=== PATIENT | female | born 2000 | race Native Hawaiian/Other Pacific Islander ===

== ENCOUNTER 2022-06-26 02:14 | Outpatient (CLI) | payer MEDICAID, SELFPAY ==
[2022-06-26 02:43] VITALS: BP 125/77; PULSE 75; RESP 16; TEMP 37.3
[2022-06-26] MEDS: hydrOXYzine pamoate 25 MG CAPSULE 100 MG PO (04:25)
== END 2022-06-26 04:30 | disposition home or self-care (01) ==
LOC: OB OUT 02:15 → OB 02:16
PROVIDERS: PCP Family Medicine; Visit Provider Family Medicine
DX: O47.1 False labor at or after 37 completed weeks of gestation (principal); Z3A.40 40 weeks gestation of pregnancy
CPT/HCPCS: 99213; A9270

== ENCOUNTER 2022-06-26 08:17 | Inpatient (IN) | payer MEDICAID, SELFPAY ==
[2022-06-26] VITALS (41 sets, daily range): BP systolic 118–176; BP diastolic 58–92; PULSE 65–108; RESP 16–20; TEMP 36.8–38.5; O2SAT 97–100; BMI 33.8
[2022-06-26] MEDS: fentaNYL 100 MCG/2 ML inj IVP ×4 (08:51→22:20)
--- NOTE | 2022-06-26 09:05 | PM.OBHPLI ---
OB - H&P: HPI Labor/Induction History of Present Illness Time Seen by Provider: 09:05 Date Seen: 06/26/22 Chief Complaint: The patient is a 22 year old 1 para 0 at 40+1 weeks gestation by early US, who presents with contractions. Chief complaint: Maternity Narrative: Char Mercer is a 22 year old female at 40+ 1 weeks by early ultrasound presents with contractions starting around 11:30 p.m. yesterday. has been uncomplicated. Contractions became more intense and frequent. She presented to triage overnight and was found to be 3/80%/ -1. 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 She then returned several hours later with more intense contractions. That she felt some trickling fluid, but this was determined to be vaginal gel. No gross ruptured. She made change to 4/80/-1 during a period of observation and will be admitted for labor. Labs Blood type: A (+) positive Rubella: immune RPR/VDLR: nonreactive GBS status: negative HBsAG: negative Review of Systems Status of ROS: Reports: 10 or more systems reviewed and unremarkable except as noted in History and below Meds Home Medications and Allergies Home Medications Medication Instructions Recorded Confirmed Type vitamin with calcium tab 06/26/22 History no.72-iron 27 mg-folic acid 1 mg tablet ( Vitamins Plus Low Iron) Allergies Allergy/AdvReac Type Severity Reaction Status Date / Time No Known Drug Allergies Allergy Verified 06/26/22 06:36 OB - H&P: Exam Physical Exam: Vital signs: Pulse BP Pulse Ox 75 127/78 97 06/26/22 07:57 06/26/22 07:57 06/26/22 07:56 Narrative: General appearance: Alert, oriented and appropriate. No acute distress. Lying in hospital bed. HEENT: EOMI, no conjunctival injection or discharge. Mucous membranes moist. Neck: Supple. Cardiovascular: Regular rate and rhythm, no rubs, murmurs or extra heart sounds. Pulmonary: Clear to auscultation bilaterally. No wheezes, rales or rhonchi. Abdomen: Gravid. Soft, nontender. MSK: Moves all extremities. Extremities: Were well-perfused, no lower extremity edema. Skin: No rashes appreciated over exposed skin. Neuro: Cranial nerves grossly intact. No observable deficits. Detailed Labor and Delivery Exam: Dilation (cm): 4 Effacement (%): 80 Cervix position: mid Consistency: soft Fetus (Single): Station: -1 Amniotic Membrane Status: intact Heart Rate Baseline: 130 Monitor Accelerations: Present Monitor Decelerations: None Care Home Variability: Moderate (6-25) OB - Problem Based A/P Additional Plan (1) Term : Status: Acute Plan - Latent labor, making cervical change - Received fentanyl for pain management with good effect. Nitrous or epidural upon request - GBS negative - status reassuring - Expectant management. Anticipate vaginal delivery.
[2022-06-26 10:23] LABS: SARS PCR* Negative SARS-CoV-2 (Negative)
[2022-06-26 10:55] LABS: Total Protein Urine 20 mg/dL
[2022-06-26 10:56] LABS: Creatinine Urine 28.2 mg/dL
[2022-06-26 11:24] LABS: Hematocrit 34.7 % (33.0-51.0); Mean Corpuscular HGB Conc 35 gm/dL (32-36); Mean Corpuscular Hemoglobin 29 pg (26-34); Mean Corpuscular Volume 84 fL (80-100); Platelet Count* 215 K/uL (140-440); Red Blood Count 4.12 m/uL (4.00-5.20); White Blood Count* 15.19 K/uL (4.50-11.00)
[2022-06-26 11:37] LABS: Slide Review Reflex No
[2022-06-26 14:10] LABS: Creatinine* 0.4 mg/dL (0.5-1.5); Est. Creatinine Clearance* 262.54; Estimated Glomerular Filt Rate 144 ml/min
[2022-06-26 14:11] LABS: Alanine Aminotransferase* 16 U/L (4-35); Aspartate Amino Transferase* 26 U/L (12-35); Blood Urea Nitrogen* 7 mg/dL (5-24)
[2022-06-26] MEDS: LACTATED RINGERS 1000 ML 1,000 ML 125 ML IV ×2 (15:00→19:35)
[2022-06-26] MEDS: OXYTOCIN 30 unit/500 ML in NS 30 UNIT/500 ML BAG IVPB (16:09)
--- NOTE | 2022-06-26 21:19 | PM.OBPNL ---
Subjective Time Seen by Provider: 21:19 Date Seen: 06/26/22 Narrative: Patient uncomfortable and breathing, rocking through contractions. Elevated temp to 101.3 at 1842. States not feeling unwell, warm or achey. Feeling tired, little to no rest last night or today. No leaking fluid. Limited cervical electronic data interchange specialist the course of the day. 4/80/+1 > 5/90/+1. Objective Vital Signs: Last Vital Signs Temp 100.0 F H 06/26/22 19:41 Pulse 92 06/26/22 19:41 Resp 20 06/26/22 17:05 BP 146/86 H 06/26/22 19:41 Pulse Ox 99 06/26/22 10:10 Pelvic Exam Dilation (cm): 5 Effacement (%): 90 Station: +1 Contractions Monitor mode: Internal Contraction Frequency: Q 4-5 Contraction pattern: Regular Assessment Station: +1 Amniotic Membrane Status: SROM Heart Rate Baseline: 140 Monitor Accelerations: Present Monitor Decelerations: None Plan Plan: #Active labor - OP on SVE. Position changes per nursing to promote turning - SROM, unknown time. Prolonged ROM. Membranes are ruptured on exam, though patient has not been leaking fluid - IUPC placed. Pitocin has been started and stopped on several occasions due to tachysystole - Long discussion regarding epidural. Patient would like to hold off, but encouraged this after 1-2 hours hours of positional changes to promote rest #Suspected III - Single temp elevated to 101.3. No tachycardia. WBC 15.9 at 1100. - Initiate abx given fever + prolonged ROM #Pre-eclampsia - Diagnosed upon admission. BPs 140s/80s and Pr/Cr ratio 0.7. Asymptomatic. - Continue to monitor BP closely - Initiate BP tx and mag for severe range pressures If no significant progress despite the above interventions, consider section
[2022-06-26] MEDS: AMPICILLIN 2 GM in 0.9 % SODIUM CHLORIDE Mini-bag 100 ML IVPB (21:58)
[2022-06-26 22:10] LABS: Appearance Urine Clear (Clear); Bilirubin Urine Negative (Negative); Blood Urine 2+ (Negative); Color Urine Yellow (Yellow); Glucose Urine Negative (Negative); Ketones Urine Negative (Negative); Leukocyte Esterase Urine 1+ (Negative); Nitrite Urine Negative (Negative); Protein Urine 2+ (Negative); Specific Gravity Urine 1.015 (1.000-1.030); Urobilinogen Urine 0.2 (0.2-1.0)
[2022-06-26 22:23] LABS: Squamous Epithelial Cell Urine Moderate (None-Few); WBC Urine 0-2 (0-5)
[2022-06-26 22:24] LABS: Mucus Urine Few
[2022-06-27] VITALS (38 sets, daily range): BP systolic 99–139; BP diastolic 64–89; PULSE 74–92; RESP 16; TEMP 36.2–37.8; O2SAT 96–100
[2022-06-27] MEDS: fentaNYL 100 MCG/2 ML inj IVP (00:11)
[2022-06-27] MEDS: ROPIVACAINE 0.2% 100 ml 100 ML 12 MG EPIDURAL (00:15)
[2022-06-27] MEDS: LACTATED RINGERS 1000 ML 1,000 ML 125 ML IV (00:18)
[2022-06-27] MEDS: LIDOCAINE 2% (PF) 5 ML VIAL EPIDURAL (00:19)
--- NOTE | 2022-06-27 00:39 | PM.OBPNL ---
Subjective Time Seen by Provider: 00:39 Date Seen: 06/27/22 Narrative: Patient requested epidural and after several attempts, unfortunately was not effective. Patient carlitos experienced isolated pain relief over her right hip. No cervical change despite spinning babies maneuvers. Objective Vital Signs: Last Vital Signs Temp 100.0 F H 06/27/22 00:25 Pulse 100 06/26/22 23:27 Resp 20 06/26/22 17:05 BP 128/65 06/26/22 23:27 Pulse Ox 99 06/26/22 23:24 Pelvic Exam Dilation (cm): 5 Effacement (%): 90 Station: +1 Contractions Monitor mode: Internal Contraction pattern: Regular Assessment Station: +1 Amniotic Membrane Status: SROM Heart Rate Baseline: 140 Senior Living Variability: Moderate (6-25) Monitor Accelerations: Absent Monitor Decelerations: None Plan Plan: Given no cervical change and ineffective pain control with epidural, section was recommended and patient is in agreement. Dr. Zheng is consulted.
--- NOTE | 2022-06-27 01:01 | P.OBCN_ITS ---
OB - CN: HPI Date of Consult Time Seen by Provider: 01:03 Date Seen: 06/27/22 Patient: Kiya Patient Consult date: 06/27/22 Requesting Physician: Smitha Trimble MD Primary Care Provider: Smitha Trimble MD Consult Narrative Narrative: Char is a 22 year old G 1 P 0 at 40 2/7 weeks gestation that was admitted to the [facility] on 06/26/22 for early labor. She was diagnosed with preeclampsia without severe features soon after her admission with a urine protein/creatinine ratio 0.7 and blood pressures primarily 140s/80s-140/90s. She has not required IV antihypertensives. She spiked a fever to greater than 101? F at 6:42 p.m. on 06/26/2022. She is currently on ampicillin and gen tamicin. She has an IUPC in place which shows adequate labor greater than 4 hours. She has not had any advancement in dilation since prior to noon on 06/26/2022. Current dilation is 5cm/0 station. A primary low-transverse section was recommended for arrest of dilation. She is not currently on Pitocin. Consent form for primary low-transverse section was reviewed and signed. GBS negative. History of Present Dating criteria: based on LMP care: good care Ultrasounds: normal 1st trimester US and normal mid trimester US complications: preeclampsia and infection (Chorioamnionitis) Infection details: other (chorioamnionitis) History History 1 Elective abortions Para 0 Spontaneous abortions Hx # Term Pregnancies Ectopic pregnancies Hx # Pregnancies Multiple births Number of Living Children 0 Labs Blood type: A (+) positive Rubella: immune RPR/VDLR: nonreactive GBS status: negative HBsAG: negative OB Labs: Lab Assessment Start: 06/26/22 06:40 Freq: Status: Active Protocol: PC.OBGBS Activity Type Activity Date Activity User E-sign Co-sign Detail Recorded Client Recorded Date Recorded By Document 06/26/22 06:39 GINNY ENGLAND [id number] 06/26/22 06:40 GINNY ENGLAND(2) 06/26/22 06:39 Lab Assessment GBS Negative [facility] Medical History (Updated 06/27/22 @ 01:02 by Molly Zheng MD) Arrest of dilation, delivered, current hospitalization Mild pre-eclampsia (06/27/22) Surgical History (Updated 06/27/22 @ 01:02 by Molly Zheng MD) History of appendectomy Status post primary low transverse section (06/27/22) Social History Smoking Status: Never smoker Meds Home Medications and Allergies Home Medications Medication Instructions Recorded Confirmed Type vitamin with calcium tab 06/26/22 History no.72-iron 27 mg-folic acid 1 mg tablet ( Vitamins Plus Low Iron) Allergies Allergy/AdvReac Type Severity Reaction Status Date / Time No Known Drug Allergies Allergy Verified 06/26/22 06:36 OB - H&P: Exam Physical Exam: Vital signs: Temp Pulse Resp BP Pulse Ox 100.0 F H 100 20 128/65 99 06/27/22 00:25 06/26/22 23:27 06/26/22 17:05 06/26/22 23:27 06/26/22 23:24 Narrative: GENERAL APPEARANCE: Pleasant, [race], well-groomed woman in no acute distress. VITAL SIGNS: as noted in nursing notes HEAD: Normocephalic, atraumatic. THYROID: no masses, nodularity, tenderness or enlargement. LUNGS: Clear to auscultation bilaterally without wheezes, rales or rhonchi. HEART: Regular rate and rhythm with normal S1 and S2. No gallop, rub or murmur. ABDOMEN: Gravid. Soft, nontender, nondistended, with normal bowels sounds throughout. FSE: 130's, moderate variability, rare variable decelerations, (+) accelerations. Category 2, reassuring. IUPC: Ctx's Q2-4minutes. SVE: 5cm/70% (edematous cervix)/0station. EXTREMITIES: No cyanosis, pain or clubbing. Mild BLE edema to the ankle. No varicosities. NEUROLOGIC: Normal gait and balance. Normal deep tendon reflexes at bilateral patella 2+/2, equal without clonus. PSYCHIATRIC: alert and oriented x3. Normal speech pattern, eye contact and affect. SKIN: Warm, dry, and well perfused. Good turgor. No lesions, nodules or rashes. OB - Results Labs Labs: Short CBC 06/26/22 Range/Units 11:18 WBC 15.19 H (4.50-11.00) K/uL Hgb 12.0 (12.0-16.0) gm/dL Hct 34.7 (33.0-51.0) % Plt Count 215 (140-440) K/uL BMP 06/26/22 11:18 BUN 7 Creatinine 0.4 L Liver Function 06/26/22 Range/Units 11:18 AST 26 (12-35) U/L ALT 16 (4-35) U/L Urine 06/26/22 Range/Units 21:54 Urine Color Yellow (Yellow) Urine Appearance Clear (Clear) Urine pH 6.0 (5.0-8.5) Ur Specific [place] 1.015 (1.000-1.030) Urine Protein 2+ A (Negative) Urine Glucose (UA) Negative (Negative) OB - CN: A/P Assessment and Plan (1) Mild pre-eclampsia: Status: Acute (2) Arrest of dilation, delivered, current hospitalization: Status: Acute (3) Status post primary low transverse section: Status: Acute Plan 1. Arrest of dilation, chorioamnionitis, mild preeclampsia recommend primary low-transverse section. 2. Consent form reviewed and signed. 3. Plan on continuing Zosyn until 24 hours afebrile. 4. repeat preeclampsia labs later this am.
--- NOTE | 2022-06-27 01:10 | P.PCN_ITS ---
Procedure Note Time Seen by Provider: :10 Date Seen: 06/27/22 Will [facility] bill your pro fee for this procedure?: Yes Procedure: Preoperative diagnosis: 22-year-old 1 para 0 at for and 2/7 weeks with 1. Arrest of dilation 2. Chorioamnionitis 3. Mild preeclampsia Postoperative diagnosis: Same Procedure: Primary low-transverse section Anesthesia: Spinal, TAPS block Surgeon: Molly Zheng MD Rolling Down Machine Operator: N/A Quantitative blood loss: 260 mL IV Fluid: 1000 mL UOP: 250 mL, clear urine at the end the procedure in Specimen: Placenta to pathology Drain(s): Hilton to gravity. Findings: A live female infant was delivered from the direct OP position at 1:38 a.m.. Apgars were 7 at 1 min and 9 at 5 min, respectively. Infant weight: 5 lb 11 oz: SGA. Nuchal cord(s): No. The placenta was delivered spontaneously and complete at 1:40 a.m.. Amniotic fluid: Thick meconium- stained, small amount. Normal uterus, fallopian tubes and ovaries were noted. Procedure: Char was taken to the OR where spinal anesthetic was found be adequate. A Hilton catheter was placed. The patient was then placed in the dorsal supine position with a leftward tilt. She was then prepped and draped in a normal sterile manner. A Pfannenstiel skin incision was made and carried through sharply to the underlying layer of fascia. Fascia was incised in the midline and this incision carried laterally with Swan scissors. The superior aspect of fascial incision was grasped with Juan Carlos clamps, tented up, and the rectus muscles dissected off with a combination of blunt and sharp dissection to approximately 5 cm above the fascial incision. The inferior aspect of the fascial incision was not dissected off the rectus muscles. The rectus muscles were in the midline. The peritoneum was entered bluntly. This opening was extended bluntly. An Geoffrey-O self-retaining retractor was placed. A bladder flap was not created. Uterus was incised in a low transverse manner in the midline. This incision carried laterally with blunt pressure on the inferior and superior aspects of the uterine incision. The amniotic sac was ruptured. The 's head and body was delivered atraumatically. The was shown to the patient and her support person and then handed to waiting pediatric and nursing staff. The placenta was delivered spontaneously. The uterus was cleared of clots and debris. The uterine incision was re-approximated with the uterus in vivo. The 1st layer using 0-Vicryl in a running, locked manner. The 2nd layer using 0- Monocryl in a running, vertical, imbricating layer. Additional sutures needed for hemostasis: Yes: 3 figure 8 sutures using 2-0 chromic. Jaime was applied to the uterine incision Excellent hemostasis was verified. The Geoffrey retractor was removed. The rectus muscles were not reapproximated. The peritoneum was repaired using 3-0 Vicryl in a running manner. The rectus muscles were then closely inspected to verify hemostasis. Hemostasis was obtained with bipolar cautery. The fascia was then re-approximated using 0-Maxon loop in a running manner. The subcutaneous tissue was then irrigated with saline and hemostasis obtained with bipolar cautery. The subcutaneous tissue was re-approximated using 3-0 plain gut interrupted sutures. The skin was reapproximated using 4-0 Monocryl in a running subcuticular manner. Exofin skin adhesive and a Methaplex dressing were applied. The patient tolerated this procedure well. Sponge, lap and instrument counts were correct x2 active to the procedure. Patient was taken to the recovery area in stable condition. The patient received 2g of IV Ancef prior to skin incision. After cord clamp: 1gm IV TXA. Surgeon: Molly Zheng MD
[2022-06-27] MEDS: CEFAZOLIN 2 GM INJ IVP (01:15)
[2022-06-27] MEDS: AZITHROMYCIN 500 MG in 0.9 % SODIUM CHLORIDE 250 ml 250 ML 255 MG IVPB (01:16)
--- NOTE | 2022-06-27 02:48 | P.ANES_ITS ---
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
--- NOTE | 2022-06-27 02:49 | P.NB_ITS ---
Nerve Block Nerve Block Time Seen by Provider: 02:20 Date Seen: 06/27/22 Type of block requested by surgeon for post-operative analgesia: TAP Side: bilateral Time out performed: Yes Verification of patient name: Yes Verification of date of : Yes Site marking: site marked Name of person performing procedure: darian Continuous monitoring Was continuous monitoring of O2 sat, B/P, radiation monitor, recorded every 15 minutes?: Yes Procedure Checklist: sterile prep, needles and gloves Ultrasound guided. Images saved: Yes Medications given in 5ml increments after negative aspiration: Marcaine %: 0.25 mL: 30 Needle gauge: 20 and Exparel mL: 10 Patient tolerated procedure well: Yes Block Charges Block Charge (with Pro Fee): TAP Bilateral Use of Ultrasound Machine for Block: Yes- US Guidance/pain block
[2022-06-27 04:37] LABS: Hematocrit 34.7 % (33.0-51.0); Hemoglobin* 11.9 gm/dL (12.0-16.0); Mean Corpuscular HGB Conc 34 gm/dL (32-36); Mean Corpuscular Hemoglobin 29 pg (26-34); Mean Corpuscular Volume 85 fL (80-100); Platelet Count* 207 K/uL (140-440); Red Blood Count 4.07 m/uL (4.00-5.20); White Blood Count* 21.05 K/uL (4.50-11.00)
[2022-06-27 04:42] LABS: Slide Review Reflex No
[2022-06-27] MEDS: AMPICILLIN 2 GM in 0.9 % SODIUM CHLORIDE Mini-bag 100 ML IVPB ×4 (04:46→23:37)
[2022-06-27 04:50] LABS: Alanine Aminotransferase* 18 U/L (4-35); Aspartate Amino Transferase* 24 U/L (12-35); Blood Urea Nitrogen* 6 mg/dL (5-24); Creatinine* 0.5 mg/dL (0.5-1.5); Est. Creatinine Clearance* 210.03; Estimated Glomerular Filt Rate 137 ml/min
[2022-06-27] MEDS: ACETAMINOPHEN 500 MG TABLET 1000 MG PO ×3 (05:24→18:30)
[2022-06-27] MEDS: KETOROLAC 30 MG/ML inj IVP ×3 (08:46→20:14)
[2022-06-28] VITALS (7 sets, daily range): BP systolic 109–122; BP diastolic 72–85; PULSE 75–84; RESP 16–18; TEMP 36.6–37.2; O2SAT 97–98
[2022-06-28] MEDS: ACETAMINOPHEN 500 MG TABLET 1000 MG PO ×3 (00:47→21:33)
[2022-06-28] MEDS: IBUPROFEN 600 MG TABLET PO ×4 (04:16→23:55)
[2022-06-28] MEDS: OXYCODONE 5 MG TABLET PO ×2 (15:36→19:31)
[2022-06-29] VITALS: BP 115/77; PULSE 73; RESP 18; TEMP 37; O2SAT 97
[2022-06-29] MEDS: OXYCODONE 5 MG TABLET PO ×3 (02:08→11:18)
[2022-06-29] MEDS: ACETAMINOPHEN 500 MG TABLET 1000 MG PO ×2 (04:49→11:19)
[2022-06-29] MEDS: IBUPROFEN 600 MG TABLET PO (08:17)
[2022-06-29] MEDS: DOCUSATE SODIUM 100 MG CAPSULE PO (08:18)
--- NOTE | 2022-06-29 08:29 | P.DS_ITS ---
DS: Providers Provider Date Seen: 06/29/22 Date of admission: 06/26/22 08:17 Primary care physician: Smitha Trimble MD Admitting Clinician: Smitha Trimble MD Attending Physician on discharge: Alyson Sena SNDandre with Kaylan Banda CNM supervising Date of Discharge: 06/29/22 DS: Diagnosis Discharge Diagnosis (1) care and examination immediately after delivery: Status: Acute (2) Chorioamnionitis, delivered, current hospitalization: Status: Acute (3) Arrest of dilation, delivered, current hospitalization: Status: Acute (4) Status post primary low transverse section: Status: Acute (5) Mild pre-eclampsia: Status: Acute (6) Lactating mother: Status: Acute Exam Narrative: Exam Narrative: GENERAL APPEARANCE:? normal affect, alert, no distress? MOOD:? appropriate? CHEST:? clear to auscultation? HEART:? regular rate and rhythm? ABDOMEN:? soft, non-tender the uterine fundus is At Umbilicus, Midline and is appropriate for the stage of recovery.?Lower abdominal transverse incision, well approximated; clean, dry, and intact. PERINEUM:? mild edema of the perineum. EXTREMITIES:? normal and no edema? Const: Vital Signs, click to edit/add: Vital Signs - 24 hr 06/28/22 08:35 06/28/22 14:53 06/28/22 19:44 Temperature 98.4 F 97.9 F 98.4 F Pulse Rate [Left P ulse Oximeter] 78 79 82 Respiratory Rate 18 16 16 Blood Pressure [Le ft Arm] 122/85 117/81 114/78 Pulse Oximetry 97 97 97 Oxygen Delivery Me thod Room Air Room Air Room Air 06/29/22 00:00 Temperature 98.6 F Pulse Rate [Left P ulse Oximeter] 73 Respiratory Rate 18 Blood Pressure [Le ft Arm] 115/77 Pulse Oximetry 97 Oxygen Delivery Me thod Room Air Documenting provider has reviewed patient's vital signs: yes OB - DS: Summary Hospital Course Hospital Course: Char is a 22 year old G 1 now P 1 at 41.2 weeks gestation that was admitted to the Center on 06/26/22 for labor. She had an delivery for arrest of dilation and chorioamnionitis. She delivered a viable female infant. the patient has done well. The pain is well controlled with current medications.? She has no new complaints.? Urinary output is adequate and she is voiding without difficulty.?Has a good appetite, is tolerating a general diet, is passing flatus, and has not yet had a bowel movement.? Has small amount of rubra lochia.? She is ambulating well. She is and reports it is going well.?She does desire to continue to work on her skills and see today. Peripartum Data Procedures: Procedures Operation Date: 06/27/22 01:15 Actual Procedure Side Surgeon p Section Molly Zheng MD complications: none [place] Infant Gender: Female Infant Discharge Plan: Home Status at Discharge Functional status at discharge: independent ambulation Overall status at discharge: patient is progressing back to baseline Time Spent with Patient Time attestation: Total time spent providing and/or coordinating discharge services: Time spent: Less than 30 minutes Discharge Plan Discharge Disposition: Home, Self-Care Date of Admission: 06/26/22 08:17 Attending Provider on Discharge: Kaylan Banda Consulting Providers: Molly Zheng Primary Care Provider: Smitha Trimble I Condition: Stable Anticipated Discharge Date/Time: 06/30/22 12:00 Discharge Medications: New docusate sodium 100 mg Capsule 100 mg PO BID PRN (Reason: constipation) Qty: 100 0RF ibuprofen 600 mg Tablet 600 mg PO Q6H PRN (Reason: Pain) Qty: 30 0RF oxycodone 5 mg Tablet 5 - 10 mg PO 3XD PRN (Reason: Pain) Qty: 5 0RF Continued Vitamin Plus Low Iron 27 mg iron- 1 mg tablet 1 tab PO Q24H Label Comments: TAKE 1 TABLET BY MOUTH DAILY Discharge Orders: Discharge Order (Routine); Ordered 06/29/22 Ordered By: Kaylan Banda Patient Education: OB Over the Counter Medication Information, OB Vaginal/Breast Feeding Additional Instructions: ACTIVITY RESTRICTIONS: After a section: 1. No driving while taking narcotic pain medication during the day. 1-2 weeks. Okay to be the passenger anytime. 2. Lifting restriction: Maximum of 20 pounds for 6 weeks. 3. No high impact or core exercises for 6 weeks. 4. Walking and going up or down stairs is safe by 1 day after delivery. 5. Nothing vaginally: 6 weeks. No tampons or intercourse 6. Do not soak the incision in a bath or pool: 2 weeks NO RESTRICTION FOR: 1. Walking 2. Going up/down stairs 3. Showering Return to work/school: A minimum of 8 weeks off for /postoperative recovery is recommended. FOLLOW-UP APPOINTMENTS: 1. 1 week Blood Pressure check. 2. 2 weeks : Incision check in the [facility]. 3. A 6 week visit for an annual physical exam with Dr. Mcpherson. consultation services are available to all mothers and babies for the first year after delivery.? To make an appointment, please call [phone]. Discharge Diet: Regular Follow Up Appointments: [facility] [Provider Group] Smitha Trimble MD [Primary Care Provider] - Forms: [facility] Info Instructions
[2022-06-29 09:45] VITALS: BP 126/83; PULSE 72; RESP 16; TEMP 36.6; O2SAT 98
== END 2022-06-29 13:38 | disposition home or self-care (01) | DRG 786 ==
LOC: OB OUT 08:17 → OB 08:17
PROVIDERS: Admitting Provider Family Medicine; PCP Family Medicine; Visit Provider Obstetrics & Gynecology
PROC: (CPT 59514; principal; 2022-06-27 01:00)
DX: O14.04 Mild to moderate pre-eclampsia, complicating childbirth (principal); O41.1231 Chorioamnionitis, third trimester, fetus 1; Z3A.40 40 weeks gestation of pregnancy; Z37.0 Single live birth; O62.0 Primary inadequate contractions
CPT/HCPCS: 01961; 36415; 59025; 76942; 81003; 81015; 82565; 82570; 84112; 84156; 84450; 84460; 84520; 85027; 87635; 88307; 99140; A9270; C9290; J0290; J0456; J0690; J1100; J1580; J1885; J2274; J2370; J2405; J2590; J2795; J3010; J3490; J7050; J7120